=== PATIENT | female | born 1985 | race Two or more races ===

== ENCOUNTER 2017-08-18 14:40 | Emergency (ER) | payer OTHER ==
[2017-08-18 14:47] VITALS: RESP 18; O2SAT 100
--- NOTE | 2017-08-18 15:01 | EDPHY ---
H & P Time Seen by Provider: 08/18/17 14:49 HPI/ROS: CHIEF COMPLAINT: Possible reaction to iodine HISTORY OF PRESENT ILLNESS: This 31 y/o female presents following a possible adverse reaction to radioactive iodine. She had thyroid uptake scans yesterday and today related to a recent diagnosis of hyperthyroidism. At work later, she was talking on the phone with a coworker while eating a salad and began to feel dizzy, nauseous, and shaky. The dizziness was worse with movement or eye movement. She became more shaky and uneasy, and developed a pressure sensation in her head. She waited half an hour with a coworker, then called her doctor who suggested she might be having an allergic reaction to the iodine. Her symptoms have resolved slightly, but she continues to feel shaky and nauseous. Her head pressure remains and she rates it at 6/10 in severity. No recent illness, cough, cold fever. She is generally healthy and exercises regularly. Since her hyperthyroid diagnosis, she has not been taking any medications or supplements. No alcohol or drug use. REVIEW OF SYSTEMS: A 10 point review of systems was performed and is negative with the exception of the elements mentioned in the history of present illness. Past Medical/Surgical History: Hyperthyroidism Social History: Mother at bedside. Occasional alcohol use. No tobacco or illicit drug use. Smoking Status: Never smoked Physical Exam: General Appearance: Alert, appears anxious Eyes: Pupils equal and round, no conjunctival pallor or injection ENT, Mouth: Mucous membranes moist Neck: Normal inspection Respiratory: Lungs are clear to auscultation Cardiovascular: Regular rate and rhythm, rate 60 Gastrointestinal: Abdomen is soft and non-tender Neurological: A&O, nonfocal exam Skin: Warm and dry, no rash, no hives Extremities: Nontender, no swelling Psychiatric: anxious Constitutional: Initial Vital Signs Temperature (C) 36.7 C 08/18/17 14:43 Heart Rate 63 08/18/17 14:43 Respiratory Rate 18 08/18/17 14:43 Blood Pressure 122/82 H 08/18/17 14:43 O2 Sat (%) 100 08/18/17 14:43 O2 Delivery Mode Room Air Allergies/Adverse Reactions: No Known Allergies Allergy (Unverified 08/18/17 14:47) Home Medications: Medication Instructions Recorded Ondansetron Odt [Zofran Odt 4 mg 4 mg PO Q4 PRN #6 tab 08/18/17 (*)] Medical Decision Making - Diagnostics EKG Interpretation: EKG interpreted by me reveals normal sinus rhythm, rate 60, no ST/T changes. Interpretation: normal EKG Imaging Results: Imaging Impressions Thyroid Uptake & Scan NM 08/17/17 09:00 Impression: 1. Hyperthyroidism with elevated uptakes at 6 and 24 hours.. 2. No definite thyroid nodules.. ED Course/Re-evaluation: 31 y/o female with recent diagnosis of hyperthyroidism presents following an episode of dizziness, head pressure, and nausea. Exam unremarkable. Patient appears anxious. Plan to administer 4mg IV Zofran, 0.5mg IV Ativan, and 1L IV NS for symptom relief. No lab results in system. Thyroid uptake scan c/w hyperthyroidism. Plan for EKG, labs including CBC, chemistries, thyroid panel. EKG shows sinus rhythm. 16 15: Feels much better after IV Ativan and Zofran, sx have nearly resolved, wants to go home. There is no evidence of serious etiology for her symptoms. She did complain of dizziness, though has no nystagmus on exam and the dizziness has resolved. Possibly secondary to peripheral vertigo. Neurologic exam is normal and I do not suspect a central etiology for her symptoms today. There is no evidence of thyrotoxicosis. I feel that she is safe and stable for discharge home. Differential Diagnosis: Dizziness including but not limited to peripheral and central causes of vertigo , orthostatic causes including dehydration, thyrotoxicosis and blood loss. - Data Points Laboratory Results: Laboratory Results 08/18/17 15:20 08/18/17 15:20 08/18/17 08/18/17 08/18/17 15:20 15:20 15:20 WBC 4.98 10^3/uL 10^3/uL (3.80-9.50) RBC 5.01 10^6/uL 10^6/uL (4.18-5.33) Hgb 14.9 g/dL g/dL (12.6-16.3) Hct 43.2 % % (38.0-47.0) MCV 86.2 fL fL (81.5-99.8) MCH 29.7 pg pg (27.9-34.1) MCHC 34.5 g/dL g/dL (32.4-36.7) RDW 12.0 % % (11.5-15.2) Plt Count 236 10^3/uL 10^3/uL (150-400) MPV 11.2 fL fL (8.7-11.7) Neut % (Auto) 50.4 % % (39.3-74.2) Lymph % (Auto) 38.8 % % (15.0-45.0) [place] % (Auto) 7.2 % % (4.5-13.0) Eos % (Auto) 2.6 % % (0.6-7.6) Baso % (Auto) 0.8 % % (0.3-1.7) Nucleat RBC Rel Count 0.0 % % (0.0-0.2) Absolute Neuts (auto) 2.51 10^3/uL 10^3/uL (1.70-6.50) Absolute Lymphs (auto) 1.93 10^3/uL 10^3/uL (1.00-3.00) Absolute Monos (auto) 0.36 10^3/uL 10^3/uL (0.30-0.80) Absolute Eos (auto) 0.13 10^3/uL 10^3/uL (0.03-0.40) Absolute Basos (auto) 0.04 10^3/uL 10^3/uL (0.02-0.10) Absolute Nucleated RBC 0.00 10^3/uL 10^3/uL (0-0.01) Immature Gran % 0.2 % % (0.0-1.1) Immature Gran # 0.01 10^3/uL 10^3/uL (0.00-0.10) Sodium 140 mEq/L mEq/L (135-145) Potassium 3.8 mEq/L mEq/L (3.5-5.2) Chloride 107 mEq/L mEq/L (97-110) Carbon Dioxide 20 mEq/l L mEq/l (22-31) Anion Gap 13 mEq/L mEq/L (8-16) BUN 14 mg/dL mg/dL (7-23) Creatinine 0.7 mg/dL mg/dL (0.6-1.0) Estimated GFR > 60 Glucose 85 mg/dL mg/dL (70-100) Calcium 9.5 mg/dL mg/dL (8.5-10.4) TSH < 0.015 uIU/mL L uIU/mL (0.465-4.680) Free T4 2.96 ng/dL H ng/dL (0.59-2.19) Free T3 8.19 pg/mL H pg/mL (2.77-5.27) Beta HCG, Qual NEGATIVE Medications Given: Discontinued Medications Sodium Chloride (Ns) 1,000 mls @ 0 mls/hr IV EDNOW ONE; Wide Open PRN Reason: Protocol Stop: 08/18/17 15:13 Last Admin: 08/18/17 15:31 Dose: 1,000 mls Lorazepam (Ativan Injection) 0.5 mg IVP EDNOW ONE Stop: 08/18/17 15:14 Last Admin: 08/18/17 15:31 Dose: 0.5 mg Ondansetron HCl (Zofran) 4 mg IVP EDNOW ONE Stop: 08/18/17 15:13 Last Admin: 08/18/17 15:32 Dose: 4 mg Departure - Departure Disposition: Home, Routine, Self-Care Clinical Impression: Dizziness Condition: Good Instructions: Dizziness (ED) Additional Instructions: Drink plenty of fluids. Return for worsening symptoms or any concerns. Referrals: Luis Nguyen MD [Primary Care Provider] - As per Instructions (Call to make an appointment for tomorrow.) Prescriptions: Ondansetron Odt [Zofran Odt 4 mg (*)] 4 mg PO Q4 PRN #6 tab PRN Reason: Nausea Report Scribed for: Libra Mariano Report Scribed by: Melvi Leon Date of Report: 08/18/17 Time of Report: 14:58 Physician Review and Approval Statement: 08/18/17 14:58 Portions of this note were transcribed by a medical front desk coordinator. I personally performed a history, physical exam, medical decision making, and confirmed accuracy of information the transcribed note.
[2017-08-18] MEDS ORDERED: ONDANSETRON 4 MG/2 ML VIAL IVP ONE (15:12)
[2017-08-18] MEDS ORDERED: NS 1,000 ML IV ONE (15:12)
[2017-08-18] MEDS ORDERED: LORazepam 2 MG/ML INJ IVP ONE (15:13)
[2017-08-18 15:31] LABS: PLATELET COUNT 236 10^3/uL (150-400)
--- NOTE | 2017-08-18 15:39 | CPEKG ---
Heart Rate: 60 RR Interval: 1000 P-R Interval: 144 QRSD Interval: 74 QT Interval: 420 QTC Interval: 420 P [place]: 44 QRS [place]: 41 T Wave [place]: 39 EKG Severity - NORMAL ECG - EKG Impression: SINUS RHYTHM Electronically Signed By: Libra Mariano 18-Aug-2017 19:30:00
[2017-08-18 15:53] VITALS: BP 113/64; PULSE 75
[2017-08-18 16:29] VITALS: TEMP 97.9
== END 2017-08-18 16:35 | disposition home or self-care (01) ==
DX: R42 Dizziness and giddiness (principal); E86.9 Volume depletion, unspecified
CPT/HCPCS: 78014; 93005; 96361; 96374; 96375; 99284; A9516; 84481-90; J2060; J2405